=== PATIENT | male | born 1960 | race Caucasian/White ===

== ENCOUNTER 2023-03-02 07:43 | Day surgery (SDC) | payer BC ==
[~2023-03-02] VITALS: Ht 185.4 cm; Wt 110.3 kg
[2023-03-02 12:42] VITALS: BP 145/93
== END 2023-03-02 10:44 | disposition home or self-care (01) ==
LOC: ORSCSDS 07:43
PROVIDERS: Surgery
PROC: 0DBK8ZX Excision of Ascending Colon, Via Natural or Artificial Opening Endoscopic, Diagnostic (ICD-10-PCS; principal; 2023-03-02 09:15)
PROC: 0DBP8ZX Excision of Rectum, Via Natural or Artificial Opening Endoscopic, Diagnostic (ICD-10-PCS; principal; 2023-03-02 09:15)
PROC: 0DBM8ZX Excision of Descending Colon, Via Natural or Artificial Opening Endoscopic, Diagnostic (ICD-10-PCS; principal; 2023-03-02 09:15)
DX: R19.4 Change in bowel habit (principal); Z86.010 Personal history of colon polyps; D12.2 Benign neoplasm of ascending colon; D12.4 Benign neoplasm of descending colon; D12.8 Benign neoplasm of rectum
CPT/HCPCS: 88305; J2250; J2704; J7120

== ENCOUNTER 2023-10-31 23:43 | Emergency (ER) | payer SELFPAY ==
[~2023-10-31] VITALS: Ht 185.4 cm; Wt 108.9 kg
[2023-11-01 00:01] VITALS: BP 154/101
== END 2023-11-01 02:53 | disposition home or self-care (01) ==
LOC: ER 23:43
DX: S01.112A Laceration without foreign body of left eyelid and periocular area, initial encounter (principal); W18.30XA Fall on same level, unspecified, initial encounter
CPT/HCPCS: 12052; 70450; 99283

== ENCOUNTER 2025-02-19 09:24 | Emergency (ER) | payer SELFPAY ==
[~2025-02-19] VITALS: Ht 182.9 cm; Wt 113.4 kg
[2025-02-19 09:48] LABS: BASOPHILS ABSOLUTE AUTO 0.01 K/mm3 (0.00-0.23); BASOPHILS PERCENT AUTO 0 % (0-2); EOSINOPHILS PERCENT AUTO 0 % (0-6); Hematocrit 43.4 % (37.0-53.0); IMMATURE GRAN ABSOLUTE AUTO 0.01 K/mm3 (0.00-0.10); IMMATURE GRAN PERCENT AUTO 0 % (0-1); LYMPHOCYTES ABSOLUTE AUTO 0.51 K/mm3 (0.84-5.20); LYMPHOCYTES PERCENT AUTO 10 % (21-46); MONOCYTES ABSOLUTE AUTO 0.53 K/mm3 (0.16-1.47); MONOCYTES PERCENT AUTO 10 % (4-13); Mean Corpuscular HGB 34.5 pg (26.0-34.0); Mean Corpuscular HGB Conc 34.6 g/dL (31.5-36.5); Mean Corpuscular Volume 100 fL (80-100); Mean Platelet Volume 9.6 fL (9.1-12.4); NEUTROPHILS ABSOLUTE AUTO 4.32 K/mm3 (1.96-9.15); NEUTROPHILS PERCENT AUTO 80 % (41-73); Platelet Count 52 K/mm3 (150-400); RDW Coefficient Variation 14.1 % (11.7-14.2); RDW Standard Deviation 52.9 fL (35.1-46.3); Red Blood Cell Count 4.35 M/mm3 (4.30-5.90); White Blood Cell Count 5.38 K/mm3 (4.00-11.30)
[2025-02-19 10:12] LABS: Albumin, Blood 3.6 g/dL (3.4-5.0); Albumin/Globulin Ratio 0.9 (0.8-1.8); Bilirubin, Total 0.7 mg/dL (0.1-1.0); Bun/Creatinine Ratio 10.5 (12.0-20.0); Calcium, Blood 8.3 mg/dL (8.5-10.1); Creatinine, Blood 0.57 mg/dL (0.60-1.20); Globulin, Blood 3.8 g/dL (2.2-4.0); Potassium, Blood 3.5 mmol/L (3.5-5.5); Total Protein, Blood 7.4 g/dL (6.4-8.2)
[2025-02-19] MEDS ORDERED: levETIRAcetam 1,000 MG in NS 100 ML IV ONE ×2 (10:40→10:45)
[2025-02-19] MEDS ORDERED: NiCARdipine HCL 50 MG in NS 250 ML IV SCH (11:10)
[2025-02-19 11:34] VITALS: BP 140/93
== END 2025-02-19 12:00 | disposition short-term general hospital (02) ==
LOC: ER 09:24
PROVIDERS: Student in an Organized Health Care Education/Training Program
DX: I62.01 Nontraumatic acute subdural hemorrhage (principal); I62.03 Nontraumatic chronic subdural hemorrhage; I60.9 Nontraumatic subarachnoid hemorrhage, unspecified; G81.94 Hemiplegia, unspecified affecting left nondominant side
CPT/HCPCS: 70450; 71045; 80053; 80320; 85025; 85730; 93005; 93010; 96365; 99285-25; J1953; J7050